=== PATIENT | female | born 1990 | race Two or more races ===

== ENCOUNTER 2020-06-27 16:20 | Emergency (ER) | payer SELFPAY ==
[~2020-06-27] VITALS: Ht 167.6 cm; Wt 109.1 kg
[2020-06-27 16:18] VITALS: BP 139/87
== END 2020-06-27 19:39 | disposition left against medical advice (07) ==
LOC: EMS 16:20
DX: Z20.828 Contact with and (suspected) exposure to other viral communicable diseases (principal); Z53.21 Procedure and treatment not carried out due to patient leaving prior to being seen by health care provider